=== PATIENT | female | born 1985 | race African-American/Black ===

== ENCOUNTER 2017-04-20 21:32 | Emergency (ER) | payer OTHER ==
[2017-04-20 23:10] LABS: AMPHETAMINE, URINE NEG (NEG); BARBITURATES, URINE NEG (NEG); COCAINE, URINE NEG (NEG)
--- NOTE | 2017-04-20 23:10 | PD ---
HPI Chief Complaint abdominal pain Date Seen: Apr 20, 2017 Travel History International Travel<30 Days: No Contact w/Intl Traveler<30Days: No Known Affected Area: No History of Present Illness HPI This is a 31y/o at 20w4d with no care who presented to the [facility] with reports of lower abdominal pain for a few days. She denies vaginal bleeding and leakage of fluid with reports of maybe some movements. Pt plans to start pnc at [facility]. Para: 0 : 1 History Past Medical History Narrative Medical H/o Leukemia from ages [age], in remission since Past Surgical History Narrative Surgical Port-a-cath surgeries, multiple Family History Family History: Negative Social History Alcohol Use: No Tobacco Use: No Substance Abuse: No Allergies-Medications (Allergen,Severity, Reaction): Coded Allergies: No Known Allergies (Unverified , 10/22/16) Home Meds No Active Prescriptions or Reported Meds Review of Systems Except as stated in HPI: all other systems reviewed are Neg Physical Exam Narrative GENERAL: Well-nourished, well-developed patient. SKIN: Warm and dry. HEAD: Normocephalic and atraumatic. EYES: No scleral icterus. No injection or drainage. ENT: No nasal drainage noted. Mucous membranes pink. Airway patent. NECK: Supple, trachea midline. No JVD. CARDIOVASCULAR: Regular rate and rhythm without murmurs, gallops, or rubs. RESPIRATORY: Breath sounds equal bilaterally. No accessory muscle use. BREASTS: Bilateral exam showed no masses , no retractions, no nipple discharge. ABDOMEN/GI: Abdomen soft, non-tender, bowel sounds present, no rebound, no guarding Gravid to 20 weeks size GENITOURINARY: External Genitalia: intact and normal in appearance VE deferred FHT's: +FH on doppler EXTREMITIES: No cyanosis or edema. BACK: Nontender without obvious deformity. No CVA tenderness. NEUROLOGICAL: Awake and alert. Motor and sensory grossly within normal limits. Five out of 5 muscle strength in all muscle groups. Normal speech. Data Data Vital Signs Reviewed: Yes Orders Urinalysis - C+S If Indicated (04/20/17 22:27) Ob/Psych Drug Screen, Urine (04/20/17 22:27) Vital Signs (Adult) .ON ADMISSION (04/20/17 22:59) ^ Labor Status (04/20/17 22:59) MDM Medical Record Reviewed: No Narrative Course / MDM 31y/o at 20w4d with round ligament pain. -no contractions -no care, counseled about starting care [facility] Plan -d/c home -start care [facility] Diagnosis Diagnosis: Primary Impression: Abdominal pain affecting , antepartum Additional Impression: No care in current in second trimester Disposition: 01 DISCHARGE HOME Condition: Good Scripts No Active Prescriptions or Reported Meds Fely Byrd MD Apr 20, 2017 23:10
[2017-04-20 23:14] LABS: BACTERIA, URINE RARE /hpf; BLOOD, URINE NEG (NEG); COMMENT (UR) CULT NOT INDICATED; CULTURE IF INDICATED CULT NOT INDICATED; GLUCOSE,URINE NEG (NEG); KETONE, URINE NEG (NEG); MUCUS URINE FEW /lpf (OCC); NITRITE,URINE NEG (NEG); PH, URINE 6.5 (5.0-8.5); SQUAMOUS EPITHELIAL CELL URINE 1 /hpf (0-5); URINE COLOR LIGHT-YELLOW (YELLW/STRAW)
[2017-04-25 08:48] LABS: BATH SALTS (MDPV) UR NEG (NEG); ECSTASY (MDMA) UR NEG (NEG); GABAPENTIN UR NEG (NEG); HEROIN (6-ACETYLMORPHINE) UR NEG (NEG); HYDROMORPHONE U NEG (NEG); K2 SPICE UR NEG (NEG); OBMETHADONE UR NEG (NEG); OXYCODONE (PERCODAN) NEG (NEG); PHENCYCLIDINE URINE NEG (NEG)
== END 2017-04-21 02:48 | disposition home or self-care (01) ==
LOC: HOBED 21:32
DX: O26.899 Other specified pregnancy related conditions, unspecified trimester (principal); R10.2 Pelvic and perineal pain; Z3A.20 20 weeks gestation of pregnancy
CPT/HCPCS: 80307; 81001; 99282; G0481

== ENCOUNTER 2017-05-08 16:04 | Emergency (ER) | payer OTHER ==
[2017-05-08 16:06] VITALS: BP 130/80; PULSE 119; RESP 20; TEMP 98; O2SAT 99
--- NOTE | 2017-05-08 17:16 | PD ---
Physical Exam Date Seen by Provider: May 08, 2017 Time Seen by Provider: 17:15 Narrative 31 yo female here for evaluation of chest pain. Ongoing for the past two days. 15 weeks . Comes and goes. More severe since being here in ED. No cardiac history. No other medical issues. Vitals are stable with exception of tachycardia. Awaiting bed placement. Data Data Last Documented VS Vital Signs Date Time Temp Pulse Resp B/P Pulse Ox O2 Delivery O2 Flow Rate FiO2 05/08/17 16:06 98.0 119 20 130/80 99 Room Air Orders Electrocardiogram (05/08/17 ) [facility] Medical Record Reviewed: Yes Supervised Visit with BARBARA: No Scripts No Active Prescriptions or Reported Meds Samson Currie May 08, 2017 17:16
[2017-05-08 18:13] VITALS: BP 118/73; PULSE 105; RESP 18; O2SAT 97
[2017-05-08 18:15] LABS: AUTOMATED NEUTROPHIL # 8.6 TH/MM3 (1.8-7.7); EOSINOPHIL # 0.1 TH/MM3 (0-0.4); EOSINOPHIL % 0.6 % (0.0-4.0); HEMATOCRIT 36.8 % (35.0-46.0); HEMO FLAGS DIFF FINAL; LYMPH % 15.9 % (9.0-44.0); LYMPHOCYTE # 1.8 TH/MM3 (1.0-4.8); MEAN CELL VOLUME 92.5 FL (80.0-100.0); MEAN CORPUSCULAR HEMOGLOBIN 30.9 PG (27.0-34.0); MEAN CORPUSCULAR HGB CONC 33.3 % (32.0-36.0); MONO % 6.3 % (0.0-8.0); NEUT % 77.2 % (16.0-70.0); PLATELET COUNT 287 TH/MM3 (150-450); RED BLOOD COUNT 3.98 MIL/MM3 (4.00-5.30); RED CELL DISTRIBUTION WIDTH 15.2 % (11.6-17.2); WHITE BLOOD COUNT 11.2 TH/MM3 (4.0-11.0)
[2017-05-08] MEDS ORDERED: SODIUM CHLORIDE 0.9% FLUSH 10 ML FLUSH IV FLUSH PRN (18:15)
[2017-05-08] MEDS ORDERED: prenatal vitamin PO (18:22)
[2017-05-08 18:25] LABS: APTT (PATIENT) 23.1 SEC (24.3-30.1); INTERNATIONAL NORMALIZED RATIO 0.9 RATIO
[2017-05-08 18:34] LABS: BICARBONATE 24.9 MEQ/L (21.0-32.0); POTASSIUM 3.6 MEQ/L (3.5-5.1)
--- NOTE | 2017-05-08 18:34 | PD ---
HPI Chief Complaint: Pain: Acute or Chronic Time Seen by Provider: 18:15 Travel History International Travel<30 days: No Contact w/Intl Traveler<30days: No Traveled to known affect area: No History of Present Illness HPI Patient's 31-year-old female presenting to emergency for evaluation of chest pain. Patient states it started 11 AM this morning she was laying in her bed when it started. She states the pain is sharp, it comes and goes. The pain is located to the left of the mid sternum, nothing exacerbates or alleviates the pain. Patient has been nauseated but this is consistent throughout her . She denies any vomiting, abdominal pain, cramping, vaginal discharge or bleeding, dysuria, fevers. Patient is 15 weeks , she has had routine care. Her past medical history is significant for leukemia as a child. PFSH Past Medical History Cancer: Yes (LEUKEMIA AGES 2-9 YEARS OLD) Tetanus Vaccination: < 5 Years ?: LMP: 15 WEEKS : 0 Para: 0 Miscarriage: 0 : 0 Past Surgical History Other Surgery: Yes (PORTACATH REMOVAL) Social History Alcohol Use: No Tobacco Use: No Substance Use: No Allergies-Medications (Allergen,Severity, Reaction): Coded Allergies: No Known Allergies (Unverified , 05/08/17) Reported Meds & Prescriptions Reported Meds & Active Scripts Active Reported [ vitamin] 1 Cap PO DAILY Review of Systems Except as stated in HPI: all other systems reviewed are Neg Cardiovascular: Positive: Chest Pain or Discomfort Physical Exam Narrative GENERAL: Well-developed, well-nourished, alert female. Resting comfortably in no acute distress SKIN: Warm and dry. HEAD: Atraumatic. Normocephalic. EYES: Pupils equal and round. No scleral icterus. No injection or drainage. ENT: No nasal bleeding or discharge. Mucous membranes pink and moist. NECK: Trachea midline. No JVD. CARDIOVASCULAR: Regular rate and rhythm. RESPIRATORY: No accessory muscle use. Clear to auscultation. Breath sounds equal bilaterally. GASTROINTESTINAL: Abdomen soft, non-tender, nondistended. Hepatic and splenic margins not palpable. MUSCULOSKELETAL: Extremities without clubbing, cyanosis, or edema. No obvious deformities. NEUROLOGICAL: Awake and alert. No obvious cranial nerve deficits. Motor grossly within normal limits. Five out of 5 muscle strength in the arms and legs. Normal speech. PSYCHIATRIC: Appropriate mood and affect; insight and judgment normal. Data Data Last Documented VS Vital Signs Date Time Temp Pulse Resp B/P Pulse Ox O2 Delivery O2 Flow Rate FiO2 05/08/17 18:13 105 18 118/73 97 05/08/17 16:06 98.0 Room Air Orders Electrocardiogram (05/08/17 ) Complete Blood Count With Diff (05/08/17 17:50) Basic Metabolic Panel (Bmp) (05/08/17 17:50) Act Partial Throm Time (Ptt) (05/08/17 17:50) Prothrombin Time / Inr (Pt) (05/08/17 17:50) D-Dimer (05/08/17 17:50) Comprehensive Metabolic Panel (05/08/17 18:05) Lipase (05/08/17 18:05) Act Partial Throm Time (Ptt) (05/08/17 18:05) Iv Access Insert/Monitor (05/08/17 18:05) Ecg Monitoring (05/08/17 18:05) Oximetry (05/08/17 18:05) NPO (05/08/17 18:05) Sodium Chloride 0.9% Flush (Ns Flush) (05/08/17 18:15) Labs Laboratory Tests Test 05/08/17 05/08/17 17:30 18:30 White Blood Count 11.2 TH/MM3 Red Blood Count 3.98 MIL/MM3 Hemoglobin 12.3 GM/DL Hematocrit 36.8 % Mean Corpuscular Volume 92.5 FL Mean Corpuscular Hemoglobin 30.9 PG Mean Corpuscular Hemoglobin 33.3 % Concent Red Cell Distribution Width 15.2 % Platelet Count 287 TH/MM3 Mean Platelet Volume 7.3 FL Neutrophils (%) (Auto) 77.2 % Lymphocytes (%) (Auto) 15.9 % Monocytes (%) (Auto) 6.3 % Eosinophils (%) (Auto) 0.6 % Basophils (%) (Auto) 0.0 % Neutrophils # (Auto) 8.6 TH/MM3 Lymphocytes # (Auto) 1.8 TH/MM3 Monocytes # (Auto) 0.7 TH/MM3 Eosinophils # (Auto) 0.1 TH/MM3 Basophils # (Auto) 0.0 TH/MM3 CBC Comment DIFF FINAL Differential Comment Prothrombin Time 10.0 SEC Prothromb Time International 0.9 RATIO Ratio Activated Partial 23.1 SEC 23.2 SEC Thromboplast Time D-Dimer Quantitative (PE/DVT) 0.83 MG/L FEU Sodium Level 137 MEQ/L 136 MEQ/L Potassium Level 3.6 MEQ/L 3.7 MEQ/L Chloride Level 104 MEQ/L 104 MEQ/L Carbon Dioxide Level 24.9 MEQ/L 23.8 MEQ/L Anion Gap 8 MEQ/L 8 MEQ/L Blood Urea Nitrogen 7 MG/DL 7 MG/DL Creatinine 0.55 MG/DL 0.56 MG/DL Estimat Glomerular Filtration 156 ML/MIN 153 ML/MIN Rate Random Glucose 105 MG/DL 108 MG/DL Calcium Level 9.4 MG/DL 9.0 MG/DL Total Bilirubin 0.2 MG/DL Aspartate Amino Transf 16 U/L (AST/SGOT) Alanine Aminotransferase 26 U/L (ALT/SGPT) Alkaline Phosphatase 56 U/L Total Protein 6.8 GM/DL Albumin 3.1 GM/DL Lipase 204 U/L MDM Medical Decision Making Medical Screen Exam Complete: Yes Emergency Medical Condition: Yes Interpretation(s) Laboratory Tests Test 05/08/17 05/08/17 17:30 18:30 White Blood Count 11.2 TH/MM3 Red Blood Count 3.98 MIL/MM3 Hemoglobin 12.3 GM/DL Hematocrit 36.8 % Mean Corpuscular Volume 92.5 FL Mean Corpuscular Hemoglobin 30.9 PG Mean Corpuscular Hemoglobin 33.3 % Concent Red Cell Distribution Width 15.2 % Platelet Count 287 TH/MM3 Mean Platelet Volume 7.3 FL Neutrophils (%) (Auto) 77.2 % Lymphocytes (%) (Auto) 15.9 % Monocytes (%) (Auto) 6.3 % Eosinophils (%) (Auto) 0.6 % Basophils (%) (Auto) 0.0 % Neutrophils # (Auto) 8.6 TH/MM3 Lymphocytes # (Auto) 1.8 TH/MM3 Monocytes # (Auto) 0.7 TH/MM3 Eosinophils # (Auto) 0.1 TH/MM3 Basophils # (Auto) 0.0 TH/MM3 CBC Comment DIFF FINAL Differential Comment Prothrombin Time 10.0 SEC Prothromb Time International 0.9 RATIO Ratio Activated Partial 23.1 SEC 23.2 SEC Thromboplast Time D-Dimer Quantitative (PE/DVT) 0.83 MG/L FEU Sodium Level 137 MEQ/L 136 MEQ/L Potassium Level 3.6 MEQ/L 3.7 MEQ/L Chloride Level 104 MEQ/L 104 MEQ/L Carbon Dioxide Level 24.9 MEQ/L 23.8 MEQ/L Anion Gap 8 MEQ/L 8 MEQ/L Blood Urea Nitrogen 7 MG/DL 7 MG/DL Creatinine 0.55 MG/DL 0.56 MG/DL Estimat Glomerular Filtration 156 ML/MIN 153 ML/MIN Rate Random Glucose 105 MG/DL 108 MG/DL Calcium Level 9.4 MG/DL 9.0 MG/DL Total Bilirubin 0.2 MG/DL Aspartate Amino Transf 16 U/L (AST/SGOT) Alanine Aminotransferase 26 U/L (ALT/SGPT) Alkaline Phosphatase 56 U/L Total Protein 6.8 GM/DL Albumin 3.1 GM/DL Lipase 204 U/L Vital Signs Date Time Temp Pulse Resp B/P Pulse Ox O2 Delivery O2 Flow Rate FiO2 05/08/17 18:13 105 18 118/73 97 05/08/17 18:13 105 20 05/08/17 18:13 105 18 118/73 97 05/08/17 16:06 98.0 119 20 130/80 99 Room Air Differential Diagnosis ACS versus gastritis versus muscle strain versus spasm versus cholecystitis versus other Narrative Course Patient is a 31 year old female that presented to the emergency for evaluation of chest pain. Patient has no significant past medical history other than leukemia as a child. She is well exudate on room air, she is mildly tachycardic on arrival but this likely secondary to being nervous. Patient was concerned for her baby she is 15 weeks . She has no related complaints. Patient was protocol in triage. Labs reviewed, no acute abnormalities noted. Cardiac enzymes are negative. Lipase is normal. Patient was seen and evaluated by her gas substation operator this morning who was informed of the complaint and per patient's report was not concerned. Bedside ultrasound was performed, heart tones and movement noted. Patient felt reassured after the ultrasound. D-dimer was elevated at 0.83, this is not uncommon in . Patient has had no shortness of breath. Discussed with patient at length that d-dimer can indicate a blood clot and that if this was concerning to her we could perform additional testing. Patient was advised on the risk versus benefits of further testing as well as forgoing testing and returning to the emergency Department immediately if symptoms changed or worsened. Patient preferred to wait, she felt comfortable going home. Again she was given strict return precautions. She verbalized understanding of these instructions. Patient stable for discharge. Diagnosis Primary Impression: Chest pain, midsternal Additional Impression: Qualified Code: Z3A.15 - 15 weeks gestation of Referrals: School Bus Aide 1 week Patient Instructions: Chest Pain (ED), General Instructions, at 15 to 18 Weeks (ED) Additional Instructions: Return to emergency department immediately for any new or worsening symptoms as discussed Follow-up with her gas substation operator You may take [id number] acetaminophen as needed and as directed for pain Med/Other Pt SpecificInfo: No Change to Meds Disposition: 01 DISCHARGE HOME Condition: Stable Hawa Candelario [facility] May 08, 2017 18:34
[2017-05-08 18:53] LABS: APTT (PATIENT) 23.2 SEC (24.3-30.1)
[2017-05-08 19:11] LABS: ANION GAP 8 MEQ/L (5-15); AST (GOT) 16 U/L (15-37); BICARBONATE 23.8 MEQ/L (21.0-32.0); BLOOD UREA NITROGEN 7 MG/DL (7-18); CHLORIDE 104 MEQ/L (98-107); GLOMERULAR FILTRATION RATE 153 ML/MIN (>89); POTASSIUM 3.7 MEQ/L (3.5-5.1); SODIUM (NA) 136 MEQ/L (136-145)
[2017-05-08 19:15] LABS: ALKALINE PHOSPHATASE 56 U/L (45-117); ALT (GPT) 26 U/L (10-53); TOTAL BILIRUBIN ADULT 0.2 MG/DL (0.2-1.0)
--- NOTE | 2017-05-08 20:45 | PD ---
Data Data Last Documented VS Vital Signs Date Time Temp Pulse Resp B/P Pulse Ox O2 Delivery O2 Flow Rate FiO2 05/08/17 18:13 105 18 118/73 97 05/08/17 16:06 98.0 Room Air Orders Electrocardiogram (05/08/17 ) Complete Blood Count With Diff (05/08/17 17:50) Basic Metabolic Panel (Bmp) (05/08/17 17:50) Act Partial Throm Time (Ptt) (05/08/17 17:50) Prothrombin Time / Inr (Pt) (05/08/17 17:50) D-Dimer (05/08/17 17:50) Comprehensive Metabolic Panel (05/08/17 18:05) Lipase (05/08/17 18:05) Act Partial Throm Time (Ptt) (05/08/17 18:05) Iv Access Insert/Monitor (05/08/17 18:05) Ecg Monitoring (05/08/17 18:05) Oximetry (05/08/17 18:05) NPO (05/08/17 18:05) Sodium Chloride 0.9% Flush (Ns Flush) (05/08/17 18:15) Labs Laboratory Tests Test 05/08/17 05/08/17 17:30 18:30 White Blood Count 11.2 TH/MM3 Red Blood Count 3.98 MIL/MM3 Hemoglobin 12.3 GM/DL Hematocrit 36.8 % Mean Corpuscular Volume 92.5 FL Mean Corpuscular Hemoglobin 30.9 PG Mean Corpuscular Hemoglobin 33.3 % Concent Red Cell Distribution Width 15.2 % Platelet Count 287 TH/MM3 Mean Platelet Volume 7.3 FL Neutrophils (%) (Auto) 77.2 % Lymphocytes (%) (Auto) 15.9 % Monocytes (%) (Auto) 6.3 % Eosinophils (%) (Auto) 0.6 % Basophils (%) (Auto) 0.0 % Neutrophils # (Auto) 8.6 TH/MM3 Lymphocytes # (Auto) 1.8 TH/MM3 Monocytes # (Auto) 0.7 TH/MM3 Eosinophils # (Auto) 0.1 TH/MM3 Basophils # (Auto) 0.0 TH/MM3 CBC Comment DIFF FINAL Differential Comment Prothrombin Time 10.0 SEC Prothromb Time International 0.9 RATIO Ratio Activated Partial 23.1 SEC 23.2 SEC Thromboplast Time D-Dimer Quantitative (PE/DVT) 0.83 MG/L FEU Sodium Level 137 MEQ/L 136 MEQ/L Potassium Level 3.6 MEQ/L 3.7 MEQ/L Chloride Level 104 MEQ/L 104 MEQ/L Carbon Dioxide Level 24.9 MEQ/L 23.8 MEQ/L Anion Gap 8 MEQ/L 8 MEQ/L Blood Urea Nitrogen 7 MG/DL 7 MG/DL Creatinine 0.55 MG/DL 0.56 MG/DL Estimat Glomerular Filtration 156 ML/MIN 153 ML/MIN Rate Random Glucose 105 MG/DL 108 MG/DL Calcium Level 9.4 MG/DL 9.0 MG/DL Total Bilirubin 0.2 MG/DL Aspartate Amino Transf 16 U/L (AST/SGOT) Alanine Aminotransferase 26 U/L (ALT/SGPT) Alkaline Phosphatase 56 U/L Total Protein 6.8 GM/DL Albumin 3.1 GM/DL Lipase 204 U/L [facility] Supervised Visit with BARBARA: Yes Narrative Course The history, exam, and medical decision-making in the associated midlevel provider note were completed with my assistance. I reviewed and agree with the findings presented. I attest that I had a owvl-[id number] encounter with the patient on the same day, and personally performed and documented my assessment and findings in the medical record. *My assessment and Findings: This is a 31-year-old female who is 15 weeks who presents to the emergency department with about an hour of left- sided chest discomfort that felt like a stabbing like someone is punching 2 fingers into her chest right next to her sternum worse when she laid on her left side. She denies any associated shortness of breath, leg swelling or dyspnea on exertion. The pain has completely subsided. She came to the emergency department because she was worried about her heart and mostly worried about her baby. Here in the ER she had labs performed including a normal troponin. She had a d-dimer sent at triage which was 0.8 likely in the setting of her being . I had a long conversation with the patient regarding her risk for pulmonary embolism. I think her history is very atypical, she is not hypoxic, she has no shortness of breath or dyspnea, and she has no leg swelling and her pain is not pleuritic and has completely subsided. We discussed the risks versus benefits of further testing as the next step would be to do an ultrasound and then subsequently VQ scan which would involve some radiation exposure to her fetus. Patient does not want any further testing at this time. She feels back to normal and she says she was most concerned for the baby and doesn't think she has any problem with her lungs. I think it is reasonable to defer further testing for pulmonary embolism. I have a very low clinical suspicion based on the description of her symptoms. Patient will be discharged and can follow-up with her supervisor lead refinery. She guarantees that she'll return to the emergency department if her symptoms worsen or she develops new symptoms. Diagnosis Primary Impression: Chest pain, midsternal Additional Impression: Qualified Code: Z3A.15 - 15 weeks gestation of Referrals: Service Center Specialist 1 week Patient Instructions: General Instructions, Chest Pain (ED), at 15 to 18 Weeks (ED) Departure Forms: Tests/Procedures Additional Instruction: Return to emergency department immediately for any new or worsening symptoms as discussed Follow-up with her supervisor lead refinery You may take [id number] acetaminophen as needed and as directed for pain Disposition: 01 DISCHARGE HOME Condition: Stable Swati Lacey MD May 08, 2017 20:45
--- NOTE | 2017-05-08 22:28 | EKG ---
Date Performed: 05/08/2017 Time Performed: 17:40:04 PTAGE: 31 years EKG: Sinus rhythm WITH SHORT UT INTERVAL NONSPECIFIC T-WAVE ABNORMALITY BORDERLINE ECG NO PREVIOUS TRACING DOCTOR: Omega Riggs Interpretating Date/Time 05/08/2017 22:26:42
== END 2017-05-08 20:48 | disposition home or self-care (01) ==
LOC: NEPE 16:04
DX: O26.892 Other specified pregnancy related conditions, second trimester (principal); R07.9 Chest pain, unspecified; Z3A.15 15 weeks gestation of pregnancy
CPT/HCPCS: 80048; 80053; 83690; 85025; 85379; 85610; 85730; 93005; 99284

== ENCOUNTER 2017-05-23 21:34 | Emergency (ER) | payer OTHER ==
[~2017-05-23 21:34] MED LIST: prenatal vitamin PO
--- NOTE | 2017-05-23 22:38 | PD ---
HPI Chief Complaint Abdominal cramping Date Seen: May 23, 2017 Travel History International Travel<30 Days: No Contact w/Intl Traveler<30Days: No Known Affected Area: No History of Present Illness HPI Patient is 31-year-old black female was 17 weeks gestation presents with abdominal cramping. No bleeding or leakage of fluid. heart tones are 140s. Patient's had no official care she's had a couple of ultrasound gave confusing dates and ultrasound 17 weeks another ultrasound measured 25 weeks. Bjornmehdi [place] did a bedside ultrasound consistent with 17 weeks' gestation with a due date of 10/31/17 Para: 0 : 1 History Social History Alcohol Use: No Tobacco Use: No Substance Abuse: No Allergies-Medications (Allergen,Severity, Reaction): Coded Allergies: No Known Allergies (Unverified , 05/08/17) Home Meds Reported Medications [ vitamin] No Conflict Check1 Cap PO DAILY 05/08/17 Review of Systems General / Constitutional: No: Fever, Weight Gain, Chills, Other Eyes: No: Diploplia, Blurred Vision, Visual changes, Pain, Photophobia HENT: No: Headaches, Vertigo, Lightheadedness Cardiovascular: No: Irregular Rhythm, Chest Pain or Discomfort, Palpitations, Tachycardia, Syncope, Varicosities, Edema, Cyanosis Respiratory: No: Cough, Short of Breath, Other Gastrointestinal: Abdominal Pain, No: Nausea, Vomiting, Diarrhea Genitourinary: No: Decreased Urinary Output, Oliguria Musculoskeletal: No: Limited ROM, Weakness, Cramping, Edema, Pain Skin: No Rash, No Itching, No Dryness, No Lumps, No Change in Pigmentation, No Change in Nails, No Alopecia, No Lesions Neurologic: No: Weakness, Dizziness, Syncope, Focal Abnormalities, Coordination Problem, Headache, Slurred Speech, Seizures Psychiatric: No: Depression, Suicidal Ideations, Homicidal Ideation Endocrine: No: Heat Intolerance, Cold Intolerance, Polydipsia, Polyuria, Other Physical Exam Narrative GENERAL: Well-nourished, well-developed patient. SKIN: Warm and dry. HEAD: Normocephalic and atraumatic. EYES: No scleral icterus. No injection or drainage. ENT: No nasal drainage noted. Mucous membranes pink. Airway patent. NECK: Supple, trachea midline. No JVD. CARDIOVASCULAR: Regular rate and rhythm without murmurs, gallops, or rubs. RESPIRATORY: Breath sounds equal bilaterally. No accessory muscle use. BREASTS: Bilateral exam showed no masses , no retractions, no nipple discharge. ABDOMEN/GI: Abdomen soft, non-tender, bowel sounds present, no rebound, no guarding Gravid to [-18] weeks size Fundal Height: [-Below umbilicus] GENITOURINARY: External Genitalia: intact and normal in appearance BUS glands: [-] Cervix: [-Closed] Dilatation: [-] Closed Effacement: [-] Thick Station: [-3] Presentation: [Vertex by ultrasound-] Membranes: [intact ] Uterine Contractions: [none-] FHT's: 140s EXTREMITIES: No cyanosis or edema. BACK: Nontender without obvious deformity. No CVA tenderness. NEUROLOGICAL: Awake and alert. Motor and sensory grossly within normal limits. Five out of 5 muscle strength in all muscle groups. Normal speech. Data Data Orders Ob Poc Ultrasound (05/23/17 ) Labs Ultrasound showing a single intrauterine 17 weeks gestation with normal anatomy scan, estimated weight of 172 g, normal amniotic fluid, anterior placenta, cephalic presentation, male fetus MDM Interpretation(s) 31-year-old black female at 17 weeks gestation with abdominal pain that has resolved at this time. No bleeding or ruptured membranes. Bedside ultrasound done tonight she 17 week size intrauterine with normal anatomy and fluid. Placenta anterior,. Heart tones 140s Plan Plan for patient use Tylenol liberally for abdominal pain heating pad or hot bath for comfort, increase fluid intake, urine dip was negative for infection so no antibiotics needed at this time. [facility] Diagnosis Diagnosis: Primary Impression: 17 weeks gestation of Additional Impressions: Abdominal pain affecting , antepartum No care in current in second trimester Disposition: DISCHARGE HOME Condition: Stable Duarte Tellez II, MD May 23, 2017 22:38
== END 2017-05-23 22:44 | disposition home or self-care (01) ==
LOC: HOBED 21:34
DX: O99.89 Other specified diseases and conditions complicating pregnancy, childbirth and the puerperium (principal); R10.9 Unspecified abdominal pain; Z3A.17 17 weeks gestation of pregnancy
CPT/HCPCS: 76815

== ENCOUNTER 2018-04-19 10:55 | Emergency (ER) | payer MEDICAID ==
[~2018-04-19] VITALS: Ht 147.3 cm; Wt 64.5 kg
[2018-04-19] MEDS ORDERED: GADODIAMIDE PF 287 MG/ML 5 ML VIAL (for RAD MRI) IVCONTRAST ONE (10:56)
[2018-04-19 10:59] VITALS: BP 175/105; PULSE 75; RESP 16; TEMP 98.4; O2SAT 100
[2018-04-19] MEDS ORDERED: NAPR500T2 PO (11:21)
[2018-04-19] MEDS ORDERED: PROCHLORPERAZINE INJ 10 MG/2 ML VIAL IV PUSH ONE (11:30)
[2018-04-19] MEDS ORDERED: diphenhydrAMINE HCL 50 MG/ML VIAL IV PUSH ONE (11:30)
[2018-04-19] MEDS ORDERED: ACETAMINOPHEN 325 MG TAB PO ONE (11:30)
[2018-04-19 11:41] VITALS: BP 171/110
[2018-04-19 12:59] VITALS: BP 160/98
[2018-04-19] MEDS ORDERED: CYCLOBENZAPRINE HCL 10 MG TAB PO ONE (13:30)
--- NOTE | 2018-04-19 13:47 | RADRPT ---
EXAM DATE: 04/19/2018 1:35 PM EDT AGE/SEX: 32 years / Female INDICATIONS: Cephalgia for one month. CLINICAL DATA: This is the patient's initial encounter. Patient reports that signs and symptoms have been present for 1 month and indicates a pain score of 7/10. MEDICAL/SURGICAL HISTORY: Leukemia. None. RADIATION DOSE: 56.77 CTDI (mGy) COMPARISON: No prior exams available for comparison. TECHNIQUE: CT of the head without contrast. Using automated exposure control and adjustment of the mA and/or kV according to patient size, radiation dose was kept as low as reasonably achievable to ob tain optimal diagnostic quality images. DICOM format image data is available electronically for revi ew and comparison. FINDINGS: Cerebrum: The ventricles are normal for age. Areas of low attenuation throughout the white matter. Questionable small subcentimeter isodense lesion seen within the left occipital lobe. No evidence of midline shift, mass lesion, hemorrhage or acute infarction. No extraaxial fluid collections are seen . Posterior Fossa: The cerebellum and brainstem are intact. The 4th ventricle is midline. The cerebe llopontine angle is unremarkable. Extracranial: The visualized portion of the orbits is intact. Skull: The calvaria is intact. No evidence of skull fracture. CONCLUSION: 1. Nonspecific white matter changes. 2. Questionable small subcentimeter isodense lesion in the left occipital lobe. Contrasted MRI may b e warranted further characterization. Electronically signed by: John Lin MD 04/19/2018 1:46 PM EDT
[2018-04-19 14:29] LABS: AUTOMATED NEUTROPHIL # 7.1 TH/MM3 (1.8-7.7); BASOPHIL % 0.4 % (0.0-2.0); EOSINOPHIL % 0.5 % (0.0-4.0); HEMATOCRIT 38.4 % (35.0-46.0); HEMOGLOBIN 13.3 GM/DL (11.6-15.3); LYMPH % 18.5 % (9.0-44.0); LYMPHOCYTE # 1.7 TH/MM3 (1.0-4.8); MEAN CELL VOLUME 90.5 FL (80.0-100.0); MEAN CORPUSCULAR HEMOGLOBIN 31.3 PG (27.0-34.0); MEAN CORPUSCULAR HGB CONC 34.6 % (32.0-36.0); MEAN PLATELET VOLUME 7.3 FL (7.0-11.0); MONO % 4.5 % (0.0-8.0); MONOCYTE # 0.4 TH/MM3 (0-0.9); NEUT % 76.1 % (16.0-70.0); PLATELET COUNT 330 TH/MM3 (150-450); RED BLOOD COUNT 4.25 MIL/MM3 (4.00-5.30); RED CELL DISTRIBUTION WIDTH 12.7 % (11.6-17.2); WHITE BLOOD COUNT 9.4 TH/MM3 (4.0-11.0)
[2018-04-19 14:45] LABS: ALBUMIN 3.9 GM/DL (3.4-5.0); ALT (GPT) 21 U/L (10-53); AST (GOT) 13 U/L (15-37); BICARBONATE 26.9 MEQ/L (21.0-32.0); BLOOD UREA NITROGEN 9 MG/DL (7-18); CALCIUM 8.9 MG/DL (8.5-10.1); CHLORIDE 104 MEQ/L (98-107); CREATININE 0.66 MG/DL (0.50-1.00); GLOMERULAR FILTRATION RATE 126 ML/MIN (>89); GLUCOSE,RANDOM 104 MG/DL (74-106); SODIUM (NA) 138 MEQ/L (136-145)
[2018-04-19 14:48] LABS: ALKALINE PHOSPHATASE 92 U/L (45-117); TOTAL BILIRUBIN ADULT 0.3 MG/DL (0.2-1.0); TOTAL PROTEIN 7.5 GM/DL (6.4-8.2)
--- NOTE | 2018-04-19 15:21 | PD ---
HPI Chief Complaint: Headache Time Seen by Provider: 11:15 Travel History International Travel<30 days: No Contact w/Intl Traveler<30days: No Traveled to known affect area: No History of Present Illness HPI Patient is a 32 year old female who comes in complaining of a headache for the past month. She says the headache seems to come on every other day. She says it starts in the back of her head and moves to the front. She says she has been taking over the counter medications without relief of her pain. She says it seems to be getting worse and she has history of stroke in her family, so she came to the ED to get checked out. She says she has occasional blurred vision associated with the headache as well as nausea. She denies vomiting, fever or chills. She denies any head injury. Severity is mild to moderate. PFSH Past Medical History Cancer: Yes (LEUKEMIA AGES 2-9 YEARS OLD) Musculoskeletal: Yes (sciatic nerve pain) Tetanus Vaccination: Unknown ?: Not LMP: OCT 18, 2017 : 0 Para: 0 Miscarriage: 0 : 0 Past Surgical History Other Surgery: Yes (PORTACATH REMOVAL) Social History Alcohol Use: Yes (occasionally) Tobacco Use: No Substance Use: No Allergies-Medications (Allergen,Severity, Reaction): Coded Allergies: No Known Allergies (Unverified Adverse Reaction, Unknown, 04/19/18) Reported Meds & Prescriptions Reported Meds & Active Scripts Active Reported Naproxen 500 Mg Tab 500 Mg PO BID Review of Systems Except as stated in HPI: all other systems reviewed are Neg General / Constitutional: No: Fever, Chills HENT: Positive: Headaches Cardiovascular: No: Chest Pain or Discomfort Respiratory: No: Shortness of Breath Gastrointestinal: Positive: Nausea, No: Vomiting, Abdominal Pain Musculoskeletal: No: Myalgias, Edema Skin: No Rash, No Change in Pigmentation Neurologic: No: Weakness, Dizziness Physical Exam Narrative GENERAL: Awake and alert, in no acute distress. SKIN: Focused skin assessment warm/dry. HEAD: Atraumatic. Normocephalic. EYES: Pupils equal and round and reactive. No scleral icterus. EOMI. ENT: Mucous membranes pink and moist. NECK: Trachea midline. No JVD. CARDIOVASCULAR: Regular rate and rhythm. No murmur appreciated. RESPIRATORY: No accessory muscle use. Clear to auscultation. Breath sounds equal bilaterally. GASTROINTESTINAL: Abdomen soft, non-tender, nondistended. MUSCULOSKELETAL: No obvious deformities. No clubbing. No cyanosis. No edema. NEUROLOGICAL: Awake and alert. No obvious cranial nerve deficits. Motor grossly within normal limits. Normal speech. PSYCHIATRIC: Appropriate mood and affect; insight and judgment normal. Data Data Last Documented VS Vital Signs Date Time Temp Pulse Resp B/P (MAP) Pulse Ox O2 Delivery O2 Flow Rate FiO2 04/19/18 12:59 160/98 (118) 04/19/18 10:59 98.[address] Brain W/O Iv Contrast(Rout) (04/19/18 ) Iv Access Insert/Monitor (04/19/18 11:25) Prochlorperazine Inj (Compazine Inj) (04/19/18 11:30) Diphenhydramine Inj (Benadryl Inj) (04/19/18 11:30) Acetaminophen (Tylenol) (04/19/18 11:30) Cyclobenzaprine (Flexeril) (04/19/18 13:30) Mri Brain W&W/O Contrast (04/19/18 ) Complete Blood Count With Diff (04/19/18 14:01) Comprehensive Metabolic Panel (04/19/18 14:01) Gadodiamide Pf Inj (Omniscan Pf Inj) (04/19/18 10:56) Labs Laboratory Tests Test 04/19/18 14:16 White Blood Count 9.4 TH/MM3 Red Blood Count 4.25 MIL/MM3 Hemoglobin 13.3 GM/DL Hematocrit 38.4 % Mean Corpuscular Volume 90.5 FL Mean Corpuscular Hemoglobin 31.3 PG Mean Corpuscular Hemoglobin Concent 34.6 % Red Cell Distribution Width 12.7 % Platelet Count 330 TH/MM3 Mean Platelet Volume 7.3 FL Neutrophils (%) (Auto) 76.1 % Lymphocytes (%) (Auto) 18.5 % Monocytes (%) (Auto) 4.5 % Eosinophils (%) (Auto) 0.5 % Basophils (%) (Auto) 0.4 % Neutrophils # (Auto) 7.1 TH/MM3 Lymphocytes # (Auto) 1.7 TH/MM3 Monocytes # (Auto) 0.4 TH/MM3 Eosinophils # (Auto) 0.0 TH/MM3 Basophils # (Auto) 0.0 TH/MM3 CBC Comment DIFF FINAL Differential Comment Blood Urea Nitrogen 9 MG/DL Creatinine 0.66 MG/DL Random Glucose 104 MG/DL Total Protein 7.5 GM/DL Albumin 3.9 GM/DL Calcium Level 8.9 MG/DL Alkaline Phosphatase 92 U/L Aspartate Amino Transf (AST/SGOT) 13 U/L Alanine Aminotransferase (ALT/SGPT) 21 U/L Total Bilirubin 0.3 MG/DL Sodium Level 138 MEQ/L Potassium Level 3.7 MEQ/L Chloride Level 104 MEQ/L Carbon Dioxide Level 26.9 MEQ/L Anion Gap 7 MEQ/L Estimat Glomerular Filtration Rate 126 ML/MIN [facility] Medical Decision Making Medical Screen Exam Complete: Yes Emergency Medical Condition: Yes Medical Record Reviewed: Yes Differential Diagnosis tension headache vs migraine vs dehydration vs intracranial pathology Narrative Course Patient is a 32 year old female who comes in complaining of a headache. Exam shows no neurologic abnormalities. IV established, labs sent. Labs show no acute abnormalities. Given IVF, Tylenol, Compazine and Benadryl. She continued to have some pain, given Flexeril. CT head performed shows a questionable density, MRI suggested. MRI shows a meningioma and possible old hemorrhages. Last [address] 04/19/18 0000 Signed Impressions: CONCLUSION: 1. Nonspecific white matter changes. 2. Questionable small subcentimeter isodense lesion in the left occipital lobe . Contrasted MRI may be warranted further characterization. Brain MRI 04/19/18 0000 Signed Impressions: CONCLUSION: 1. Susceptibility weighted images reveal small subcentimeter areas of blooming artifact, 2 in the left frontal lobe, and one in the left occipital lobe and r ight parietal lobe probably representing hemosiderin deposition or calcificatio n. There is no mass effect or shift. No abnormal enhancement. These could be re lated to prior trauma or small foci of previous hemorrhage. No definite acute f indings. 2. Small meningioma in the left temporal region measuring up to 12 mm x 8 mm. I spoke with Dr. Toussaint of neurosurgery who does not feel the MRI findings are the cause of her headaches. He says nothing to be done surgically and she should follow up with neurology. She report resolution of her headache. She will be discharged with prescription for Fioricet. Advised to follow up with neurology (referral placed). Advised to return any time for any worsening symptoms. Diagnosis Primary Impression: Headache Qualified Codes: R51 - Headache Referrals: Kamari Savage MD PhD call for appointment Patient Instructions: Acute Headache (ED), General Instructions Additional Instructions: Take Fioricet as needed for severe headache. Be careful as it may make you drowsy. Follow-up with neurology. Return to the ED as needed for any worsening symptoms. Scripts Kalfanqmcc-Xefmffkafawdp-Gokcoeis (Fioricet) 50-300-40 Mg Cap 1-2 CAP PO Q6H Y for HEADACHE, #12 CAP 0 Refills Prov: Tiki Renteria MD 04/19/18 Disposition: DISCHARGE HOME Condition: Stable Tiki Renteria MD Apr 19, 2018 15:21
--- NOTE | 2018-04-19 16:16 | RADRPT ---
EXAM DATE: 04/19/2018 3:50 PM EDT AGE/SEX: 32 years / Female INDICATIONS: Cephalgia. Abnormal CT. CLINICAL DATA: This is the patient's initial encounter. Patient reports that signs and symptoms have been present for 4 - 6 days and indicates a pain score of 5/10. MEDICAL/SURGICAL HISTORY: Leukemia. . Port placement, removal. COMPARISON: No prior exams available for comparison. TECHNIQUE: Multiplanar, multisequence examination of the brain was performed without and with 13 ml O mniscan (gadodiamide) contrast as a single exam dose. FINDINGS: There is a focal dural based enhancement in the left temporal region measuring about 12 mm x 8 mm mos t characteristic of a small meningioma. No significant mass effect. No other abnormal enhancing lesio ns are identified. In the left occipital lobe there is a small approximately 5 mm lesion which has low signal on T1-weig hted images and diffusion-weighted images and blooming artifact on susceptibility weighted images. Th is correlates with recent CT finding. This does not enhance postcontrast. There are also similar area s of blooming artifact which are smaller than 5 mm, two in the left frontal lobe and one in the right parietal lobe. No hydrocephalus. No recent infarct. No abnormal extra-axial fluid. CONCLUSION: 1. Susceptibility weighted images reveal small subcentimeter areas of blooming artifact, 2 in the le ft frontal lobe, and one in the left occipital lobe and right parietal lobe probably representing hem osiderin deposition or calcification. There is no mass effect or shift. No abnormal enhancement. Thes e could be related to prior trauma or small foci of previous hemorrhage. No definite acute findings. 2. Small meningioma in the left temporal region measuring up to 12 mm x 8 mm. Electronically signed by: Shahram Chapman MD 04/19/2018 4:14 PM EDT
[2018-04-19] MEDS ORDERED: BUTA1CAP PO (16:52)
== END 2018-04-19 17:06 | disposition home or self-care (01) ==
LOC: NEPD 10:55
DX: R51 Headache (principal); R11.0 Nausea
CPT/HCPCS: 70450; 70553; 80053; 85025; 96374; 96375; 99285; A9579; J0780; J1200